=== PATIENT | female | born 1930 | race Caucasian/White ===

== ENCOUNTER 2019-01-22 03:43 | Emergency (ER) | payer MEDICARE, OTHER ==
[~2019-01-22] VITALS: Ht 162.6 cm; Wt 52.8 kg
--- NOTE | 2019-01-22 04:00 | NUR ---
Dr. Ruiz at bedside for MSE.
[2019-01-22] MEDS ORDERED: TDAP DIPH,PERTUSS,TET VAC/PF 0.5 ML DISP.SYRIN IM ONE ×2 (04:24→04:30)
[2019-01-22] MEDS ORDERED: LIDOCAINE HCL 2% 20 ML VIAL TP ONE (04:30)
--- NOTE | 2019-01-22 04:35 | NUR ---
Patient discharged to home in stable conditon. Written and verbal after care instructions given. Patient verbalizes understanding of instructions. Pt out of ER via wheelchair, assisted patient transfer to car, no falls noted, VSS, all belongings taken, to be driven home via private vehicle by son.
[2019-01-22] MEDS ORDERED: ACETAMINOPHEN ES 500 MG TABLET ONE (04:40)
[2019-01-22] MEDS ORDERED: ACETAMINOPHEN 325 MG TABLET PO ONE (04:45)
[2019-01-22 04:46] VITALS: BP 165/84
== END 2019-01-22 05:11 | disposition home or self-care (01) ==
LOC: ER 03:46
DX: S01.111A Laceration without foreign body of right eyelid and periocular area, initial encounter (principal); Y92.89 Other specified places as the place of occurrence of the external cause; Y99.8 Other external cause status
CPT/HCPCS: 90715; A4217; A4663; A9150

== ENCOUNTER 2019-01-24 15:15 | Emergency (ER) | payer MEDICARE, OTHER ==
[~2019-01-24] VITALS: Ht 162.6 cm; Wt 52.2 kg
--- NOTE | 2019-01-24 15:30 | NUR ---
patient here with her son. She is awake, alert, orientd x4. Has a bruise on her right eye area. She states she fell.
[2019-01-24] MEDS ORDERED: ACETAMINOPHEN ES 500 MG TABLET ONE (15:43)
[2019-01-24] MEDS ORDERED: ACETAMINOPHEN ES 500 MG TABLET PO ONE (15:45)
--- NOTE | 2019-01-24 16:55 | NUR ---
DC AND FOLLOW UP INSTRUCTIONS GIVEN AND EXPLAINED TO PATIENT WHO STATES SHE UNDERSTANDS ALL INSTRUCTIONS... AND TO SON
== END 2019-01-24 16:57 | disposition home or self-care (01) ==
LOC: ER 15:15
DX: S05.11XA Contusion of eyeball and orbital tissues, right eye, initial encounter (principal); S01.81XD Laceration without foreign body of other part of head, subsequent encounter; R07.81 Pleurodynia; Z86.73 Personal history of transient ischemic attack (TIA), and cerebral infarction without residual deficits; W18.30XA Fall on same level, unspecified, initial encounter; Y93.89 Activity, other specified; Y92.89 Other specified places as the place of occurrence of the external cause; Y99.8 Other external cause status
CPT/HCPCS: 70450; 71101; 72125; A4663; A9150

== ENCOUNTER 2019-01-28 15:04 | Emergency (ER) | payer MEDICARE, OTHER ==
[~2019-01-28] VITALS: Ht 162.6 cm; Wt 52.2 kg
--- NOTE | 2019-01-28 15:16 | NUR ---
Patient discharged to home in stable conditon. Written and verbal after care instructions given to patient and family. Patient & family verbalized understanding & compliance of instructions.
== END 2019-01-28 15:17 | disposition home or self-care (01) ==
LOC: ER 15:05
DX: S01.111D Laceration without foreign body of right eyelid and periocular area, subsequent encounter (principal); X58.XXXD Exposure to other specified factors, subsequent encounter
CPT/HCPCS: A4663